=== PATIENT | female | born 1950 | race Caucasian/White ===

== ENCOUNTER 2023-08-13 14:53 | Emergency (ER) | payer MEDICAID, MEDICARE ==
[~2023-08-13] VITALS: Ht 182.8 cm; Wt 54.4 kg
--- NOTE | 2023-08-13 15:05 | ED Fall/Injury ---
General Chief Complaint: Trauma-Non Activation Stated Complaint: FALL Source: patient, EMS Exam Limitations: no limitations History of Present Illness Date Seen by Provider: Aug 13, 2023 Time Seen by Provider: 14:54 Initial Comments 72-year-old female presents the emergency department via EMS after a fall. She states she simply tripped and struck the front of her head on the ground. She denies loss of consciousness. She is on blood thinning medications. She has no other injuries. Complains of pain only in her left anterior forehead at the area of cephalhematoma. All other systems reviewed and negative except documented per HPI. Voice recognition software was used to help create this chart Allergies and Home Medications Allergies Coded Allergies: Iodinated Contrast Media (Verified Allergy, Unknown, 08/13/23) Patient Home Medication List Home Medication List Reviewed: Yes Review of Systems Review of Systems Constitutional: see HPI Past Kexclvk-Ktwzgh-Wrvbmg Hx Patient Social History Tobacco Use?: No Use of E-Cig and/or Vaping dev: No Substance use?: No Alcohol Use?: No Physical Exam Vital Signs Vital Signs - First Documented 08/13/23 14:55 Temp 37.0 Pulse 73 Resp 16 B/P (MAP) 167/86 (113) Pulse Ox 98 O2 Delivery Room Air Capillary Refill : Height, Weight, BMI Height: '" Weight: lbs. oz. 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 Tetanus is up-to-date. CT scan negative for any acute intracranial abnormalities. She is discharged in stable condition. Impression Primary Impression: Fall Qualified Codes: W19.XXXA - Unspecified fall, initial encounter Additional Impression: Cephalohematoma Disposition: HOME, SELF-CARE Condition: Stable Departure-Patient Inst. Patient Instructions: Preventing Falls ED Add. Discharge Instructions: Use ibuprofen and Tylenol as needed for pain. Increase your fluids and rest. Return to the emergency department for any severe concerns. All discharge instructions reviewed with patient and/or family. Voiced understanding. MARLY MUKHERJEE DO Aug 13, 2023 15:05
--- NOTE | 2023-08-13 15:58 | Diagnostic Imaging Report ---
PROCEDURE: CT head without contrast. TECHNIQUE: Multiple contiguous axial images were obtained through the brain without the use of intravenous contrast. Auto Exposure Controls were utilized during the CT exam to meet ALARA standards for radiation dose reduction. DATE: August 13, 2023. COMPARISON: None. INDICATION: 72-year-old female, fall. Headache. FINDINGS: There is a hematoma in the region of the left frontal scalp. There are post operative changes of the right side of the skull. 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 There is no identified acute skull fracture. There is encephalomalacia in the right frontotemporal region. There is no identified abnormal extra-axial fluid collection. There is no evidence of acute intraparenchymal hemorrhage. There is no mass effect or midline shift. IMPRESSION: 1. No identified acute intracranial abnormality. 2. Hematoma in the left frontal scalp. 3. Encephalomalacia in the right frontotemporal region. Dictated by: Dictated on workstation # [id number]
[2023-08-13 17:02] VITALS: BP 170/97
== END 2023-08-13 17:03 | disposition home or self-care (01) ==
LOC: EDUNIT# 14:53 → ER 15:01
DX: S06.2X0A Diffuse traumatic brain injury without loss of consciousness, initial encounter (principal); Z79.01 Long term (current) use of anticoagulants; W01.198A Fall on same level from slipping, tripping and stumbling with subsequent striking against other object, initial encounter
CPT/HCPCS: 70450